=== PATIENT | female | born 1950 ===

== ENCOUNTER 2021-02-17 14:00 | Inpatient (IN) ==
[2021-02-17] MEDS ORDERED: PANTOPRAZOLE 40 MG VIAL IV STA (14:16)
[2021-02-17 14:39] LABS: Basophils % 0.8 % (0.0-0.8); Eosinophils # 0.2 10*3/uL (0.0-0.87); Eosinophils % 5.8 % (0.00-10.9); Hemoglobin 7.7 GM/DL (12.0-16.0); Immature Granulocytes % 0.3 %; Immature Granulocytes Absolute 0.01 #; Lymphocytes # 0.6 10*3/uL (1.4-4.0); Lymphocytes % 16.6 % (21.3-54.2); Mean Corpuscular HGB Conc 29.6 GM/DL (32-36); Mean Corpuscular Volume 88.1 FL (87-102); Mean Platelet Volume 11.8 FL (9.6-12.0); Monocytes % 11.6 % (1.7-12.7); Neutrophils % 64.9 % (38.7-73.9); Platelet Count 188 T/CUMM (130-400); Red Blood Count 2.95 MC/CUMM (3.8-5.5); Red Cell Distribution Width 18.1 % (9.3-17.3); White Blood Count 3.6 T/CUMM (4-12)
[2021-02-17 15:02] LABS: Albumin 2.8 G/DL (3.4-5.0); Bilirubin,Total 1.7 MG/DL (0.20-1.00); Calcium 8.6 MG/DL (8.5-10.1); Osmolality,Calculated 292.7 MOS/KG (273-304); Potassium 3.4 MMOL/L (3.5-5.1); Total Protein 7.6 G/DL (6.4-8.2)
[2021-02-17] MEDS ORDERED: ONDANSETRON 4 MG/2 ML VIAL IV PRN (15:26)
[2021-02-17] MEDS ORDERED: SODIUM CHLORIDE 0.9% 1,000 ML IV PRN (15:26)
[2021-02-17] MEDS ORDERED: GLUCAGON 1 MG VIAL IM PRN (15:34)
[2021-02-17] MEDS ORDERED: DEXTROSE 50% 25 GM/50 ML VIAL IV PRN (15:34)
[2021-02-17] MEDS: INSULIN REGULAR 100 UNIT/ML SUBCUT SCH ×2 (17:29→22:35)
[2021-02-17 17:56] LABS: Albumin 2.9 G/DL (3.4-5.0); Bilirubin,Direct 1.02 MG/DL (0.0-0.20); Bilirubin,Indirect 0.8 MG/DL (0.0-1.0); Bilirubin,Total 1.8 MG/DL (0.20-1.00); Total Protein 7.6 G/DL (6.4-8.2)
[2021-02-17] MEDS ORDERED: INFLUENZA VIRUS VACCINE 0.5 ML SYRINGE IM ONE (18:24)
[2021-02-17 18:35] LABS: Hematocrit 26.7 VOL% (35.7-47.0); Hemoglobin 8.1 GM/DL (12.0-16.0)
[2021-02-17] MEDS: SIMVASTATIN 20 MG TABLET PO SCH (20:43)
[2021-02-17] MEDS: AMITRIPTYLINE 50 MG TABLET PO SCH (20:43)
[2021-02-17] MEDS: METOPROLOL SUCCINATE XL 50 MG TABLET PO SCH (20:43)
[2021-02-17] MEDS: CALCIUM (CARBONATE) 500 MG TABLET PO SCH (20:43)
[2021-02-18 03:36] LABS: Hematocrit 22.4 VOL% (35.7-47.0); Hemoglobin 6.8 GM/DL (12.0-16.0)
[2021-02-18 03:54] LABS: Albumin 2.4 G/DL (3.4-5.0); Bilirubin,Total 1.8 MG/DL (0.20-1.00); Calcium 8.1 MG/DL (8.5-10.1); Potassium 3.6 MMOL/L (3.5-5.1); Total Protein 6.1 G/DL (6.4-8.2)
[2021-02-18 08:37] LABS: Hepatitis B Core IgM Quant 0.08 Index; Hepatitis B Surface Ag Quant < 0.10 Index; Hepatitis B Surface Ag Result Non-Reactive (NonReactive); Hepatitis C Virus Ab Quant 0.03 Index; Hepatitis C Virus Ab Result Non-Reactive (NonReactive)
[2021-02-18 08:41] LABS: % Iron Saturation 7.5 % (18-50)
[2021-02-18] MEDS ORDERED: hydroCHLOROthiazide 12.5 MG CAPSULE PO SCH (09:00)
[2021-02-18] MEDS ORDERED: LOSARTAN 25 MG TABLET PO SCH (09:00)
[2021-02-18] MEDS: POLYETHYLENE GLYCOL POWDER 17 GM PACK PO SCH ×2 (09:16→20:23)
[2021-02-18] MEDS: INSULIN REGULAR 100 UNIT/ML SUBCUT SCH ×5 (09:17→21:45)
[2021-02-18] MEDS: MULTIVITAMIN (CENTRUM) TABLET PO SCH (09:17)
[2021-02-18] MEDS: CALCIUM (CARBONATE) 500 MG TABLET PO SCH ×2 (09:17→20:24)
[2021-02-18] MEDS: PANTOPRAZOLE 40 MG VIAL IV SCH ×2 (09:17→20:23)
[2021-02-18] MEDS ORDERED: INFLUENZA VIRUS VACCINE 0.5 ML SYRINGE IM ONE (10:11)
[2021-02-18 14:23] LABS: Folate 18.81 NG/ML (5.38-24.0)
[2021-02-18 15:16] LABS: Hematocrit 30.8 VOL% (35.7-47.0); Hemoglobin 9.5 GM/DL (12.0-16.0)
[2021-02-18] MEDS: SIMVASTATIN 20 MG TABLET PO SCH (20:24)
[2021-02-18] MEDS: AMITRIPTYLINE 50 MG TABLET PO SCH (20:24)
[2021-02-18] MEDS: LACTULOSE 20 GM/30 ML UDCUP PO SCH (20:24)
[2021-02-18] MEDS: METOPROLOL SUCCINATE XL 50 MG TABLET PO SCH (20:24)
[2021-02-19 04:26] LABS: Basophils # 0.1 10*3/uL (0.0-0.2); Basophils % 1.1 % (0.0-0.8); Eosinophils # 0.2 10*3/uL (0.0-0.87); Eosinophils % 5.5 % (0.00-10.9); Hematocrit 28.8 VOL% (35.7-47.0); Immature Granulocytes % 0.5 %; Immature Granulocytes Absolute 0.02 #; Lymphocytes # 0.7 10*3/uL (1.4-4.0); Mean Corpuscular HGB Conc 31.3 GM/DL (32-36); Mean Corpuscular Volume 88.9 FL (87-102); Mean Platelet Volume 12.3 FL (9.6-12.0); Monocytes % 13.8 % (1.7-12.7); Neutrophils % 62.1 % (38.7-73.9); Platelet Count 160 T/CUMM (130-400); Red Blood Count 3.24 MC/CUMM (3.8-5.5); Red Cell Distribution Width 17.4 % (9.3-17.3); White Blood Count 4.4 T/CUMM (4-12)
[2021-02-19 04:56] LABS: Calcium 8.1 MG/DL (8.5-10.1); Osmolality,Calculated 296.7 MOS/KG (273-304); Potassium 3.6 MMOL/L (3.5-5.1)
[2021-02-19 04:59] LABS: Risk Ratio 5.04; VLDL Cholesterol 29.6 MG/DL
[2021-02-19] MEDS: INSULIN REGULAR 100 UNIT/ML SUBCUT SCH ×4 (08:31→21:58)
[2021-02-19] MEDS ORDERED: LIDOCAINE 2% 5 ML VIAL ONE (08:47)
[2021-02-19] MEDS ORDERED: propofoL 200 MG/20 ML VIAL IV ONE (08:47)
[2021-02-19 11:16] LABS: INR 1.3; PT Patient Result 14.3 SECS (10.5-12.0)
[2021-02-19] MEDS: POLYETHYLENE GLYCOL POWDER 17 GM PACK PO SCH ×2 (14:38→21:58)
[2021-02-19] MEDS: LACTULOSE 20 GM/30 ML UDCUP PO SCH ×2 (14:38→21:58)
[2021-02-19] MEDS: POTASSIUM CHLORIDE 20 MEQ TABLET PO PRN ×2 (14:39→15:55)
[2021-02-19] MEDS: MULTIVITAMIN (CENTRUM) TABLET PO SCH (14:39)
[2021-02-19] MEDS: CALCIUM (CARBONATE) 500 MG TABLET PO SCH ×2 (14:39→21:59)
[2021-02-19] MEDS: amLODIPine 10 MG TABLET PO SCH (14:39)
[2021-02-19] MEDS: PANTOPRAZOLE 40 MG VIAL IV SCH ×2 (14:43→21:59)
[2021-02-19] MEDS: AMITRIPTYLINE 50 MG TABLET PO SCH (21:58)
[2021-02-19] MEDS: SIMVASTATIN 20 MG TABLET PO SCH (21:59)
[2021-02-19] MEDS: METOPROLOL SUCCINATE XL 50 MG TABLET PO SCH (21:59)
[2021-02-20 05:09] LABS: Basophils % 0.6 % (0.0-0.8); Eosinophils # 0.1 10*3/uL (0.0-0.87); Hemoglobin 8.1 GM/DL (12.0-16.0); Immature Granulocytes % 0.4 %; Immature Granulocytes Absolute 0.02 #; Lymphocytes # 0.5 10*3/uL (1.4-4.0); Lymphocytes % 10.6 % (21.3-54.2); Mean Corpuscular HGB Conc 31.2 GM/DL (32-36); Mean Corpuscular Volume 89.7 FL (87-102); Mean Platelet Volume 12.5 FL (9.6-12.0); Monocytes % 12.1 % (1.7-12.7); NRBC # 0.02 10*3/uL; Neutrophils % 74.3 % (38.7-73.9); Platelet Count 173 T/CUMM (130-400); Red Cell Distribution Width 17.8 % (9.3-17.3); White Blood Count 5.1 T/CUMM (4-12)
[2021-02-20 05:36] LABS: Albumin 2.4 G/DL (3.4-5.0); Osmolality,Calculated 302.1 MOS/KG (273-304); Potassium 4.6 MMOL/L (3.5-5.1); Total Protein 6.4 G/DL (6.4-8.2)
[2021-02-20] MEDS: SODIUM CHLORIDE 0.45% 1,000 ML IV SCH (08:16)
[2021-02-20] MEDS ORDERED: DIAZEPAM 5 MG TABLET PO ONE (09:00)
[2021-02-20] MEDS: INSULIN REGULAR 100 UNIT/ML SUBCUT SCH ×4 (10:12→22:26)
[2021-02-20] MEDS: MULTIVITAMIN (CENTRUM) TABLET PO SCH (11:30)
[2021-02-20] MEDS: amLODIPine 10 MG TABLET PO SCH (11:30)
[2021-02-20] MEDS: CALCIUM (CARBONATE) 500 MG TABLET PO SCH ×2 (11:30→22:22)
[2021-02-20] MEDS: PANTOPRAZOLE 40 MG VIAL IV SCH ×2 (11:34→22:26)
[2021-02-20 13:50] LABS: Antinuclear Ab, S 1.1 U
[2021-02-20] MEDS: LACTULOSE 20 GM/30 ML UDCUP PO SCH ×2 (17:22→22:22)
[2021-02-20] MEDS: POLYETHYLENE GLYCOL POWDER 17 GM PACK PO SCH ×2 (17:22→22:26)
[2021-02-20] MEDS ORDERED: INSULIN GLARGINE 100 UNIT/ML SUBCUT SCH (21:00)
[2021-02-20] MEDS: METOPROLOL SUCCINATE XL 50 MG TABLET PO SCH (22:22)
[2021-02-20] MEDS: SIMVASTATIN 20 MG TABLET PO SCH (22:22)
[2021-02-20] MEDS: AMITRIPTYLINE 50 MG TABLET PO SCH (22:25)
[2021-02-21 05:15] LABS: Basophils % 0.7 % (0.0-0.8); Eosinophils # 0.3 10*3/uL (0.0-0.87); Eosinophils % 4.4 % (0.00-10.9); Hematocrit 23.7 VOL% (35.7-47.0); Hemoglobin 7.4 GM/DL (12.0-16.0); Immature Granulocytes % 0.3 %; Immature Granulocytes Absolute 0.02 #; Lymphocytes # 0.7 10*3/uL (1.4-4.0); Lymphocytes % 12.6 % (21.3-54.2); Mean Corpuscular HGB Conc 31.2 GM/DL (32-36); Mean Corpuscular Volume 90.5 FL (87-102); Mean Platelet Volume 12.5 FL (9.6-12.0); Monocytes % 13.1 % (1.7-12.7); Neutrophils % 68.9 % (38.7-73.9); Platelet Count 160 T/CUMM (130-400); Red Blood Count 2.62 MC/CUMM (3.8-5.5); Red Cell Distribution Width 18.2 % (9.3-17.3); White Blood Count 5.7 T/CUMM (4-12)
[2021-02-21 05:33] LABS: Calcium 8.3 MG/DL (8.5-10.1); Osmolality,Calculated 295.3 MOS/KG (273-304)
[2021-02-21] MEDS: CALCIUM (CARBONATE) 500 MG TABLET PO SCH ×2 (08:42→21:04)
[2021-02-21] MEDS: amLODIPine 10 MG TABLET PO SCH (08:42)
[2021-02-21] MEDS: LACTULOSE 20 GM/30 ML UDCUP PO SCH ×2 (08:42→21:12)
[2021-02-21] MEDS: MULTIVITAMIN (CENTRUM) TABLET PO SCH (08:42)
[2021-02-21] MEDS: POLYETHYLENE GLYCOL POWDER 17 GM PACK PO SCH ×2 (08:42→21:13)
[2021-02-21] MEDS: PANTOPRAZOLE 40 MG VIAL IV SCH ×2 (08:43→21:03)
[2021-02-21] MEDS: INSULIN REGULAR 100 UNIT/ML SUBCUT SCH ×4 (08:44→21:05)
[2021-02-21] MEDS ORDERED: INSULIN GLARGINE 100 UNIT/ML SUBCUT SCH (09:00)
[2021-02-21] MEDS: SODIUM CHLORIDE 0.45% 1,000 ML IV SCH (11:27)
[2021-02-21] MEDS ORDERED: SODIUM CHLORIDE 0.9% 1,000 ML IV PRN (11:29)
[2021-02-21 11:49] LABS: Neutrophils,Peritoneal Fluid 52 %
[2021-02-21 11:50] LABS: RBC,Peritoneal Fluid > 100000 T/CUMM
[2021-02-21] MEDS: METOPROLOL SUCCINATE XL 50 MG TABLET PO SCH (21:04)
[2021-02-21] MEDS: AMITRIPTYLINE 50 MG TABLET PO SCH (21:04)
[2021-02-21] MEDS: SIMVASTATIN 20 MG TABLET PO SCH (21:04)
[2021-02-21] MEDS: INSULIN GLARGINE 100 UNIT/ML SUBCUT SCH (21:05)
[2021-02-22 06:16] LABS: Basophils % 0.6 % (0.0-0.8); Eosinophils # 0.3 10*3/uL (0.0-0.87); Eosinophils % 5.7 % (0.00-10.9); Hemoglobin 10.1 GM/DL (12.0-16.0); Immature Granulocytes % 0.2 %; Immature Granulocytes Absolute 0.01 #; Lymphocytes # 0.6 10*3/uL (1.4-4.0); Lymphocytes % 12.4 % (21.3-54.2); Mean Corpuscular HGB Conc 32.6 GM/DL (32-36); Mean Corpuscular Volume 88.3 FL (87-102); Mean Platelet Volume 12.2 FL (9.6-12.0); Monocytes % 9.7 % (1.7-12.7); Neutrophils % 71.4 % (38.7-73.9); Platelet Count 141 T/CUMM (130-400); Red Blood Count 3.51 MC/CUMM (3.8-5.5); Red Cell Distribution Width 17.3 % (9.3-17.3); White Blood Count 4.8 T/CUMM (4-12)
[2021-02-22 06:47] LABS: Calcium 8.2 MG/DL (8.5-10.1); Osmolality,Calculated 290.5 MOS/KG (273-304); Potassium 4.5 MMOL/L (3.5-5.1)
[2021-02-22] MEDS: POLYETHYLENE GLYCOL POWDER 17 GM PACK PO SCH ×2 (08:57→20:54)
[2021-02-22] MEDS: LACTULOSE 20 GM/30 ML UDCUP PO SCH ×2 (09:00→20:52)
[2021-02-22] MEDS: PANTOPRAZOLE 40 MG VIAL IV SCH ×2 (09:00→20:54)
[2021-02-22] MEDS: CALCIUM (CARBONATE) 500 MG TABLET PO SCH ×2 (09:01→20:52)
[2021-02-22] MEDS: MULTIVITAMIN (CENTRUM) TABLET PO SCH (09:01)
[2021-02-22] MEDS: amLODIPine 10 MG TABLET PO SCH (09:01)
[2021-02-22] MEDS: INSULIN REGULAR 100 UNIT/ML SUBCUT SCH ×4 (09:24→20:53)
[2021-02-22] MEDS: INSULIN GLARGINE 100 UNIT/ML SUBCUT SCH ×2 (09:30→20:53)
[2021-02-22] MEDS: SODIUM CHLORIDE 0.45% 1,000 ML IV SCH (13:09)
[2021-02-22] MEDS: METOPROLOL SUCCINATE XL 50 MG TABLET PO SCH (20:52)
[2021-02-22] MEDS: SIMVASTATIN 20 MG TABLET PO SCH (20:52)
[2021-02-22] MEDS: AMITRIPTYLINE 50 MG TABLET PO SCH (20:52)
[2021-02-23 05:41] LABS: Basophils % 0.7 % (0.0-0.8); Eosinophils # 0.1 10*3/uL (0.0-0.87); Eosinophils % 2.9 % (0.00-10.9); Hematocrit 30.7 VOL% (35.7-47.0); Hemoglobin 9.9 GM/DL (12.0-16.0); Immature Granulocytes % 0.2 %; Immature Granulocytes Absolute 0.01 #; Lymphocytes # 0.5 10*3/uL (1.4-4.0); Lymphocytes % 12.3 % (21.3-54.2); Mean Corpuscular HGB Conc 32.2 GM/DL (32-36); Mean Corpuscular Volume 87.5 FL (87-102); Mean Platelet Volume 12.9 FL (9.6-12.0); Monocytes % 8.1 % (1.7-12.7); Neutrophils % 75.8 % (38.7-73.9); Platelet Count 138 T/CUMM (130-400); Red Blood Count 3.51 MC/CUMM (3.8-5.5); Red Cell Distribution Width 17.5 % (9.3-17.3); White Blood Count 4.1 T/CUMM (4-12)
[2021-02-23 06:05] LABS: Calcium 8.3 MG/DL (8.5-10.1); Osmolality,Calculated 292.7 MOS/KG (273-304); Potassium 4.7 MMOL/L (3.5-5.1)
[2021-02-23] MEDS: MULTIVITAMIN (CENTRUM) TABLET PO SCH (09:15)
[2021-02-23] MEDS: PANTOPRAZOLE 40 MG VIAL IV SCH (09:16)
[2021-02-23] MEDS: amLODIPine 10 MG TABLET PO SCH (09:16)
[2021-02-23] MEDS: POLYETHYLENE GLYCOL POWDER 17 GM PACK PO SCH ×2 (09:16→21:26)
[2021-02-23] MEDS: LACTULOSE 20 GM/30 ML UDCUP PO SCH ×2 (09:16→21:24)
[2021-02-23] MEDS: SODIUM CHLORIDE 0.45% 1,000 ML IV SCH (09:18)
[2021-02-23] MEDS: CALCIUM (CARBONATE) 500 MG TABLET PO SCH ×2 (10:29→21:22)
[2021-02-23] MEDS: INSULIN GLARGINE 100 UNIT/ML SUBCUT SCH ×2 (10:30→21:23)
[2021-02-23] MEDS: INSULIN REGULAR 100 UNIT/ML SUBCUT SCH ×4 (10:30→21:23)
[2021-02-23] MEDS: INSULIN LISPRO 100 UNIT/ML SUBCUT SCH (16:55)
[2021-02-23] MEDS: METOPROLOL SUCCINATE XL 50 MG TABLET PO SCH (21:22)
[2021-02-23] MEDS: SIMVASTATIN 20 MG TABLET PO SCH (21:26)
[2021-02-23] MEDS: AMITRIPTYLINE 50 MG TABLET PO SCH (21:28)
[2021-02-24 06:08] LABS: Basophils % 0.8 % (0.0-0.8); Eosinophils # 0.2 10*3/uL (0.0-0.87); Hematocrit 33.1 VOL% (35.7-47.0); Hemoglobin 10.5 GM/DL (12.0-16.0); Immature Granulocytes % 0.4 %; Immature Granulocytes Absolute 0.02 #; Lymphocytes # 0.4 10*3/uL (1.4-4.0); Lymphocytes % 8.5 % (21.3-54.2); Mean Corpuscular HGB Conc 31.7 GM/DL (32-36); Mean Corpuscular Volume 88.3 FL (87-102); Mean Platelet Volume 12.7 FL (9.6-12.0); Monocytes % 10.4 % (1.7-12.7); Neutrophils % 75.9 % (38.7-73.9); Platelet Count 143 T/CUMM (130-400); Red Blood Count 3.75 MC/CUMM (3.8-5.5); White Blood Count 4.7 T/CUMM (4-12)
[2021-02-24 07:01] LABS: Albumin 2.4 G/DL (3.4-5.0); Bilirubin,Total 2.5 MG/DL (0.20-1.00); Calcium 8.4 MG/DL (8.5-10.1); Osmolality,Calculated 292.5 MOS/KG (273-304); Potassium 4.5 MMOL/L (3.5-5.1); Total Protein 6.7 G/DL (6.4-8.2)
[2021-02-24] MEDS ORDERED: INSULIN LISPRO 100 UNIT/ML SUBCUT SCH (07:30)
[2021-02-24] MEDS: INSULIN REGULAR 100 UNIT/ML SUBCUT SCH ×3 (08:35→16:34)
[2021-02-24] MEDS ORDERED: PANTOPRAZOLE 40 MG TABLET PO SCH (09:00)
[2021-02-24] MEDS: POLYETHYLENE GLYCOL POWDER 17 GM PACK PO SCH (09:47)
[2021-02-24] MEDS: MULTIVITAMIN (CENTRUM) TABLET PO SCH (09:48)
[2021-02-24] MEDS: amLODIPine 10 MG TABLET PO SCH (09:48)
[2021-02-24] MEDS: CALCIUM (CARBONATE) 500 MG TABLET PO SCH (09:48)
[2021-02-24] MEDS: INSULIN GLARGINE 100 UNIT/ML SUBCUT SCH (09:49)
[2021-02-24] MEDS: LACTULOSE 20 GM/30 ML UDCUP PO SCH (09:49)
[2021-02-24] MEDS: SODIUM CHLORIDE 0.45% 1,000 ML IV SCH (11:05)
[2021-02-24 16:21] LABS: Alpha-1-Antitrypsin Phenotype FM bands; Alpha-1-Antitrypsin, Serum 220 mg/dL (100 - 190)
[2021-02-24] MEDS: INSULIN LISPRO 100 UNIT/ML SUBCUT SCH (16:34)
[2021-02-24 16:43] VITALS: BP 127/53
[2021-02-25 13:08] LABS: Anti-Nuclear Antibody Pattern Homogeneous
[2021-02-26 10:50] LABS: Double Stranded DNA Antibodies < 25.0 IU/ML
== END 2021-02-24 19:01 | disposition hospice, home (50) | DRG 436 ==
LOC: N.ED 14:00 → N.EDINP 15:26 → SUATTDRO 15:26 → N.EDINP 17:51 → N.TELEN 17:56
PROVIDERS: ADMIT Internal Medicine; ATTEND Internal Medicine